=== PATIENT | female | born 1990 | race African-American/Black ===

== ENCOUNTER 2020-07-08 14:02 | Emergency (ER) | payer MEDICAID ==
[~2020-07-08] VITALS: Ht 167.6 cm; Wt 70.0 kg
[2020-07-08] MEDS ORDERED: ONDANSETRON 4MG ODT PO ONE (14:30)
[2020-07-08] MEDS ORDERED: HYDROCODONE/ACETAMINOPHEN 5/325MG TABLET PO ONE ×2 (14:30→16:30)
[2020-07-08 15:18] LABS: CLARITY URINE CLEAR (CLEAR); COLOR URINE YELLOW (YELLOW); KETONES URINE NEGATIVE (NEGATIVE); LEUKOCYTE ESTERASE URINE 2+ (NEGATIVE); NITRITE URINE NEGATIVE (NEGATIVE); OCCULT BLOOD URINE NEGATIVE (NEGATIVE); PROTEIN URINE NEGATIVE (NEGATIVE); SPECIFIC GRAVITY URINE 1.012 (1.005-1.030); UROBILINOGEN URINE 0.2 E.U./dL (0.2-1.0)
[2020-07-08] MEDS ORDERED: KETOROLAC 60MG/2ML VIAL IM ONE (16:30)
[2020-07-08 18:04] VITALS: BP 129/82
== END 2020-07-08 18:05 | disposition home or self-care (01) ==
LOC: ER 14:02
DX: T14.8XXA Other injury of unspecified body region, initial encounter (principal); V49.9XXA Car occupant (driver) (passenger) injured in unspecified traffic accident, initial encounter; Y93.89 Activity, other specified; Y92.89 Other specified places as the place of occurrence of the external cause; Y99.8 Other external cause status
CPT/HCPCS: 73552; 73562; 74176; 81003; 81025; 99285; L1830; J1885; Q0162